=== PATIENT | female | born 1995 | race Caucasian/White ===

== ENCOUNTER 2020-10-16 23:35 | Emergency (ER) | payer MEDICAID, SELFPAY ==
[2020-10-17 00:36] VITALS: BP 131/81; PULSE 87; RESP 16; TEMP 36.8; BMI 34.9
[2020-10-17 01:16] LABS: Glucose Urine UA NEG (NEG); Leukocyte Esterase Urine 3+ (NEG); Nitrite Urine NEG (NEG); UACC Culture Trigger YES; Urine Blood 3+ (NEG); Urine Ketones NEG (NEG); Urine Protein 1+ MG/DL (NEG-TRACE)
[2020-10-17 01:25] LABS: Appearance Urine HAZY; Color Urine PINK
[2020-10-17 01:30] LABS: Bacteria Urine 1+ /LPF; Mucus Urine TRACE /LPF; Squamous Epithelial Cell Urine 1+ /LPF; UACC CULT YES; WBC Clumps Urine NOTED
--- NOTE | 2020-10-17 02:18 | PC.NURSE ---
at bedside for primary eval.
--- NOTE | 2020-10-17 02:25 | ED_ITS ---
HPI - Female Genitourinary General Chief complaint: Urogenital-Female Stated complaint: ABD pain/ pain when urinating Time Seen by Provider: 10/17/20 02:14 Source: patient Mode of arrival: ambulatory History of Present Illness HPI Narrative: 25-year-old female with recent diagnosis of diabetes presents with urinary pain/burning/frequency and difficulty with urination for the past 2 days and now states that she is having some pain in the left back area but denies any associated fever, chills, nausea, vomiting, diarrhea. Related Data Previous Rx's Medication Instructions Recorded ciprofloxacin HCl 500 mg PO Q12H 7 Days #14 tab 10/17/20 Allergies Allergy/AdvReac Type Severity Reaction Status Date / Time No Known Allergies Allergy Verified 10/17/20 00:35 Review of Systems Review of Systems: Pertinent positives and negatives as stated in HPI 10 point review of systems otherwise negative. [facility] Past Medical History Source: nursing notes reviewed Medical History Diabetes Surgical History History of tubal ligation Social History Social History Advance Directives: No Advance Directives Information Provided: No Physical Exam Vital Signs: Vital Signs: Last Vital Signs Temp 98.2 F 10/17/20 00:36 Pulse 87 10/17/20 00:36 Resp 16 10/17/20 00:36 BP 131/81 10/17/20 00:36 Body Mass Index 34.9 VITAL SIGNS: Reviewed. GENERAL: Well developed, well nourished, in no acute distress. HEAD: Normocephalic/atraumatic EYES: PERRLA, EOMI OROPHARYNX: no oral lesions noted, posterior pharynx clear NECK: Supple, no adenopathy LUNGS: Normal breath sounds. No adventitious sounds or accessory muscle use. CARDIOVASCULAR: Regular rate and rhythm without noted murmurs ABDOMEN: Soft, mild tenderness to palpation over suprapubic area without rebound, non-distended with bowel sounds, CVA tenderness on the left SKIN: Inspection of the skin reveals no rashes NEUROLOGIC: Alert and oriented x 4. Course Course Course Narrative: 25-year-old female with history and clinical presentation suggestive of UTI, pyelonephritis, less likely renal colic given absence of nausea/vomiting. On review of all investigations evidence of UTI and taken in conjunction with CVA tenderness patient will be empirically treated for mild pyelonephritis. MDM - Female Genitourinary Lab Data Labs: Lab Results 10/17/20 Range/Units 00:49 Urine Color PINK Urine Appearance HAZY Urine pH 6.0 (5.0-8.0) Ur Specific [place] 1.020 (1.005-1.025) Urine Protein 1+ H (NEG-TRACE) MG/DL Urine Glucose (UA) NEG (NEG) MG/DL Urine Ketones NEG (NEG) MG/DL Urine Blood 3+ H (NEG) Urine Nitrite NEG (NEG) Ur Leukocyte Esterase 3+ H (NEG) Urine RBC 15-29 H (0) /HPF Urine WBC 76-150 H (0-4) /HPF Urine WBC Clumps NOTED Ur Squamous Epith Cells 1+ /LPF Urine Bacteria 1+ /LPF Urine Mucus TRACE /LPF Discharge Plan Discharge Clinical Impression: Pyelonephritis Patient Disposition: Home, Self-Care Instructions: Kidney Infection (ED) Additional Instructions: 1. Reanude todos los medicamentos caseros seg?n lo prescrito. 2. Rigoberto un seguimiento con barron proveedor de atenci?n primaria en los pr?ximos 2 a 3 d?as para gil reevaluaci?n y un tratamiento ambulatorio adicional. 3. recomiende usar Tylenol / ibuprofeno de venta evelyn frankie se indica en el empaque exterior para controlar el dolor o temperaturas superiores a 100.4?C. 4. Aumente la hidrataci?n de los l?quidos, especialmente con agua. Regrese a la john de emergencias por un empeoramiento shabana de los s?ntomas. Prescriptions: New ciprofloxacin HCl 500 mg tablet 500 mg PO Q12H 7 Days Qty: 14 RF: 0 Referrals: [facility] [Primary Care Provider] - 2 days Print Language: Cambodian
[2020-10-17 02:34] VITALS: BP 108/66; PULSE 70; RESP 16
[2020-10-17] MEDS: Ibuprofen 400 MG TABLET PO (02:35)
[2020-10-17] MEDS: Acetaminophen 325 MG TABLET 975 MG PO (02:35)
[2020-10-17] MEDS: levoFLOXacin 500 MG TABLET PO (02:36)
== END 2020-10-17 02:57 | disposition home or self-care (01) ==
PROVIDERS: Emergency Provider Student in an Organized Health Care Education/Training Program
DX: N12 Tubulo-interstitial nephritis, not specified as acute or chronic (principal); R10.9 Unspecified abdominal pain; R30.0 Dysuria; M54.5 Low back pain; Z79.899 Other long term (current) drug therapy
CPT/HCPCS: 81001; 87086; 87088; 87186; 99283; 99284

== ENCOUNTER 2020-12-09 08:00 | Outpatient (RCR) | payer MEDICAID, SELFPAY | END 2020-12-31 09:43 | disposition home or self-care (01) | LOC: HO.PT 08:00 | PROVIDERS: PCP Nurse Practitioner Family; Visit Provider Registered Nurse Community Health | DX: M54.5 Low back pain (principal) | CPT/HCPCS: 97110; 97161; 97530 ==

== ENCOUNTER 2021-05-16 11:23 | Outpatient (REF) | payer MEDICAID, SELFPAY ==
--- NOTE | ~2021-05-16 | US_ITS ---
EXAMINATION: US PELVIS CLINICAL INFORMATION: Excessive and frequent menstruation COMPARISON: None TECHNIQUE: Ultrasound of the pelvis is performed using both transabdominal and transvaginal transducers along with Doppler. Transvaginal imaging is performed due to inadequate visualization transabdominally. FINDINGS: The uterus is anteverted and measures 9.5 x 3.7 x 4.7 cm in dimension. No focal uterine lesion is seen. The endometrium is slightly heterogeneous appearing. Endometrial thickness is normal measuring 1.4 cm. There are hypoechoic lesions in the cervix probably representing complex nabothian cysts. Differential would include small cervical fibroids. The ovaries are normal in size. The right ovary measures 3.6 x 2.2 x 3.2 cm, volume 13 mL. The left ovary measures 3 x 1.9 x 2.9 cm, volume 8.2 mL. There are multiple small peripheral cysts in both ovaries or polycystic appearance. There is no fluid in the pelvis. US/US pelvic and transvaginal IMPRESSION: Slightly heterogeneous appearing but normal thickness endometrium. Small hypoechoic lesions in the cervix questionable for complex nabothian cysts versus small cervical fibroids. Normal size ovaries with multiple small peripheral cysts or polycystic appearance.
== END 2021-05-16 11:24 | disposition home or self-care (01) ==
LOC: HO.US 11:23
PROVIDERS: Visit Provider Advanced Practice Midwife
DX: N92.1 Excessive and frequent menstruation with irregular cycle (principal); N94.6 Dysmenorrhea, unspecified
CPT/HCPCS: 76830; 76856

== ENCOUNTER 2021-06-20 21:00 | Emergency (ER) | payer MEDICAID, SELFPAY ==
[2021-06-20 21:11] VITALS: BP 105/58; PULSE 77; RESP 18; TEMP 36.4; O2SAT 98; BMI 36.6
--- NOTE | 2021-06-20 23:08 | ED_ITS ---
HPI - Ear Problem General Chief complaint: Ear Problems Stated complaint: ear pain Time Seen by Provider: 06/20/21 23:06 Source: patient and family ( mother at bedside) Mode of arrival: ambulatory Limitations: language barrier ( Togolese-speaking) History of Present Illness HPI Narrative: 26-year-old female with a past medical history of prediabetes presenting to the ED with complaints of right-sided ear pain over the past few days with clear/ yellow purulent colored drainage worse today. She denies any fevers, chills, dizziness, headaches, neck pain /stiffness, trouble swallowing or breathing, loss of taste or smell, sore throat, nasal congestion /rhinorrhea, chest pain or shortness of breath, abdominal pain, diarrhea constipation, nausea/ vomiting, rashes, recent travel, recent swimming, recent scuba diving, recent airplane flight, recent illness or trauma or any other symptoms complaints or concerns at this time. MD Complaint: ear pain and ear discharge Location: right ear Duration: constant Severity: mild Relieving factors: nothing Exacerbating factors: palpation Discharge from ear: yes - purulent Treatment prior to arrival: none Related Data Previous Rx's Medication Instructions Recorded ciprofloxacin HCl 500 mg tablet 500 mg PO Q12H 7 Days #14 tab 10/17/20 amoxicillin 875 mg-potassium 1 tab PO BID 7 Days #14 tab 06/20/21 clavulanate 125 mg tablet ciprofloxacin HCl 0.2 % ear drops 5 drp OTIC (EARS) Q12H 7 Days ea 06/20/21 in a dropperette Allergies Allergy/AdvReac Type Severity Reaction Status Date / Time No Known Allergies Allergy Verified 10/17/20 00:35 Review of Systems Review of Systems: Constitutional : No Weight loss, No Fever, No Chills, No Night Sweats, No Fatigue, No Malaise ENT/Mouth : + right ear pain/drainage, No Hearing loss, No Nasal Congestion, No Sinus Pain, No Hoarseness, No sore throat, No Rhinorrhea, No Swallowing Difficulty Eyes: No Eye Pain, No Swelling, No Redness, No Foreign Body, No Discharge, No Vision Changes Cardiovascular : No Chest Pain, No SOB, No Dyspnea on Exertion, No Orthopnea, No Edema, No Palpitations Respiratory : No Cough, No Sputum, No Wheezing, No Smoke Exposure, No Dyspnea Gastrointestinal : No Nausea, No Vomiting, No Diarrhea, No Constipation, No abdominal Pain, No Hematochezia, No Melena Genitourinary : no irregular bleeding, No Dysuria, No Urinary Frequency, No Hematuria, No Urinary Incontinence, No Urgency, No Flank Pain, No Urinary Flow Changes, No Hesitancy Musculoskeletal : No joint pain, No Myalgias, No Joint Swelling Skin : No Skin Lesions, No rash Neuro : No Weakness, No Numbness, No Paresthesias, No Loss of Consciousness, No Dizziness, No Headache Psych : No Anxiety/Panic, No Depression, No SI/HI/AH/VH, No Social Issues, Heme/Lymph: No Bruising, No Bleeding,No Lymphadenopathy Endocrine : No Polyuria, No Polydipsia, No Temperature Intolerance Yes all other systems are reviewed and are negative [facility] Past Medical History Attestation statement: The following information was validated with the patient. Medical History Diabetes Surgical History History of tubal ligation Social History Social History Advance Directives: No Advance Directives Information Provided: Yes Patient : No Physical Exam Vital Signs: Vital Signs: Last Vital Signs Temp 97.6 F 06/20/21 21:11 Pulse 77 06/20/21 21:11 Resp 18 06/20/21 21:11 BP 105/58 L 06/20/21 21:11 Pulse Ox 98 06/20/21 21:11 BMI result Body Mass Index 36.6 vital signs have been reviewed as normal and appeared to be correct. Blood pressure normal. Heart rate normal. Respiration rate normal. Temperature normal. Oxygen saturation normal. Appearance: Alert. Oriented X3. No acute distress. Head: Normal external exam. Normocephalic. Atraumatic. Eyes: PERRLA. EOMI. Conjunctiva and sclera normal. Eyelids normal. ENT: Left external ear canal within normal limits no pain. Right external ear canal now when palpated patient has tenderness to palpation on the pinna and a manipulation of the tragus and she has mild purulent clear/yellow drainage from the right ear. Tympanic membranes mildly erythematous. Left tympanic membrane is within normal limits. No foreign body noted to bilateral ears. No septal hematoma noted. No hemotympanum noted. Pharynx normal. Uvula midline. Moist mucous membranes. No lesions/ulcerations or masses noted on the tongue. Normal voice. No trismus noted. No drooling noted. No muffled voice noted. Neck: Normal inspection. Neck supple. FROM. No adenopathy. Thyroid Normal. No tracheal deviation noted. No crepitus is noted. No meningeal signs. No neck mass noted. No signs of trauma noted. CVS: Normal heart rate and rhythm. Heart sound normal. Pulses normal throughout. No murmurs/rales/gallops. Respiratory: No respiratory distress. Painless inspiration. Breath sounds normal. No wheezes/rales/rhonchi noted. Chest nontender. No crepitus is noted. No signs of trauma noted. No accessory muscle usage noted or decreased air movement noted. No signs of trauma. Abdomen: Soft and nontender. Bowel sounds normal in all 4 quadrants. No distention noted. No organomegaly noted. No visible injury noted. Back: No CVA tenderness. Full range of motion noted. Nontender. No signs of trauma. Patient neuro intact bilaterally and distally on all 4 extremities. Patient's reflexes intact bilaterally and distally on all 4 extremities. No rashes/lesion/induration/fluctuance or signs of infection noted. Skin: Skin warm and dry. Normal skin color. Normal skin turgor. No rashes/lesions/lacerations noted. Extremities: No lower extremity edema. No calf tenderness is noted. Extremities exhibit normal range of motion and nontender. Neuro: Oriented X 3. No motor deficit. No sensory deficit. Reflexes normal. Normal steady gait. No focal neuro deficits noted. CN's II-XII intact bilaterally? Vascular: + radial pulses/+ 2 distal pedal pulses/+2 dorsalis pedis b/l. Normal cap refill. No cyanosis noted to upper extremity nails and lower extremity toes nails. Course Course Course Narrative: 26-year-old female with a past medical history of prediabetes presenting to the ED with complaints of right-sided ear pain over the past few days with clear/ yellow purulent colored drainage worse today. She denies any fevers, chills, dizziness, headaches, neck pain /stiffness, trouble swallowing or breathing, loss of taste or smell, sore throat, nasal congestion /rhinorrhea, chest pain or shortness of breath, abdominal pain, diarrhea constipation, nausea/ vomiting, rashes, recent travel, recent swimming, recent scuba diving, recent airplane flight, recent illness or trauma or any other symptoms complaints or concerns at this time. Patient right-sided otitis externa starting right otitis media. Not consistent mastoiditis. Will DC home antibiotics and instructions return if any new or worsening symptoms and to follow up with primary care provider. Patient and mother at bedside understand agree this plan. [facility] - Ear Medical Records Attestation: I reviewed the patient's medical records. Discharge Plan Discharge Clinical Impression: Otitis externa, Otitis media Patient Disposition: Home, Self-Care Instructions: Otitis Externa (DC), How to Use Ear Drops (ED), Ear Infection ( ED) Prescriptions: New amoxicillin-pot clavulanate 875-125 mg tablet 1 tab PO BID 7 Days Qty: 14 0RF ciprofloxacin HCl 0.2 % dropperette 5 drp otic (ears) Q12H 7 Days 0RF No Action ciprofloxacin HCl 500 mg tablet 500 mg PO Q12H 7 Days Qty: 14 0RF Referrals: [facility] [Primary Care Provider] - 2 days Stand Alone Forms: Work/School Release Print Language: Togolese
== END 2021-06-20 23:27 | disposition home or self-care (01) ==
PROVIDERS: Emergency Provider Internal Medicine
DX: H92.01 Otalgia, right ear (principal); H66.91 Otitis media, unspecified, right ear; H60.91 Unspecified otitis externa, right ear; E11.9 Type 2 diabetes mellitus without complications
CPT/HCPCS: 99283

== ENCOUNTER 2021-06-28 13:17 | Outpatient (REF) | payer MEDICAID, SELFPAY ==
[2021-06-28 15:42] LABS: HCG Quantitative < 2 mIU/mL; TSH reflex Free T4 0.73 uIU/mL (0.32-4.0)
[2021-06-29 09:00] LABS: CT PCR NOT DETECTED (Not Detect.); NG PCR NOT DETECTED (Not Detect.)
[2021-06-30 05:46] LABS: DHEA Sulfate 274 mcg/dL (14-349)
[2021-06-30 08:26] LABS: Follicle Stimulating Hormone 6.3 mIU/mL; Lutenizing Hormone 27.2 mIU/mL; Prolactin 8.6 ng/mL
[2021-07-04 15:57] LABS: Testosterone, Free 5.5 pg/mL (0.1-6.4); Testosterone, Total 34 ng/dL (2-45)
== END 2021-06-28 13:18 | disposition home or self-care (01) ==
LOC: HO.LAB 13:17
PROVIDERS: Visit Provider Obstetrics & Gynecology
DX: Z01.419 Encounter for gynecological examination (general) (routine) without abnormal findings (principal); N93.9 Abnormal uterine and vaginal bleeding, unspecified
CPT/HCPCS: 36415; 82627; 83001; 83002; 83498; 84146; 84402; 84403; 84443; 84702; 87491; 87591; 88142; 99202

== ENCOUNTER 2021-07-15 08:03 | Day surgery (SDC) | payer MEDICAID, SELFPAY ==
[2021-07-08 14:35] VITALS: BMI 35.1
--- NOTE | 2021-07-14 08:36 | P.CONAN_ITS ---
Documented by User: Uma Barrera NP 07/14/21 08:36 HPI - Anesthesia Eval Consult details Narrative: 26yo F for D&C Hysteroscopy,poss polypectomy/myomectomy PMFSH Active Problems Active Problems: All Active Problems (Updated 06/28/21 @ 13:48 by Da Santamaria MD) Abnormal uterine bleeding (AUB) (Acute) Past Medical History Medical History Diabetes Surgical History Surgical History History of tubal ligation Social History Social History Are you a primary primary care nurse to a significant other at home: No Do you presently have visiting nurse or other home services: No Patient Tobacco Use Status: Never used Tobacco Use of substances other than those prescribed or required for medical reasons: No Have you been hit, kicked, punched, or otherwise hurt by someone within the past year? If so, by whom?: No Are you DNR?: No Advance Directives: No Advance Directives Information Provided: No Advance Directives on File: No Recently lost weight without trying: No Eating poorly because of decreased appetite: No Nutrition Risks: No Nutritional Risk Meds Allergies Allergy/AdvReac Type Severity Reaction Status Date / Time No Known Allergies Allergy Verified 07/08/21 14:12 Home Medications Medication Instructions Recorded Confirmed Last Taken Type metformin 500 mg tablet,extended 500 mg PO BID 06/28/21 07/08/21 07/14/21 History release 24 hr Exam Exam Date and Time: July 14, 2021 0836 Height,Weight and Vital Signs: Height 5 ft 5 in Weight 95.708 kg Assessment and Plan Assessment Anesthesia Assessment: Chart Reviewed Documented by User: Susan Keane MD 07/15/21 08:35 [facility] Past Medical History Medical History Diabetes Family History Family history of problems with anesthesia: No Surgical History Surgical History History of tubal ligation History of Problems with Anesthesia: No Social History Social History Are you a primary primary care nurse to a significant other at home: No Do you presently have visiting nurse or other home services: No Patient Tobacco Use Status: Never used Tobacco Use of substances other than those prescribed or required for medical reasons: No Have you been hit, kicked, punched, or otherwise hurt by someone within the past year? If so, by whom?: No Are you DNR?: No Advance Directives: No Advance Directives Information Provided: No Advance Directives on File: No Recently lost weight without trying: No Eating poorly because of decreased appetite: No Nutrition Risks: No Nutritional Risk Meds Allergies Allergy/AdvReac Type Severity Reaction Status Date / Time No Known Allergies Allergy Verified 07/08/21 14:12 Home Medications Medication Instructions Recorded Confirmed Last Taken Type metformin 500 mg tablet,extended 500 mg PO BID 06/28/21 07/08/21 07/14/21 History release 24 hr Exam Airway Mallampati Class: II (Braces) TM Dist: >3cm Neck ROM: Full Heart: rrr Lungs: cta Assessment and Plan Assessment Anesthesia Assessment: Anesthesia Plan Discussed and Chart Reviewed Final Anesthetic Review Family History of Problems with Anesthesia: No History of Problems with Anesthesia: No NPO: Yes ASA Class: II Final Preanesthetic Review: No Changes in Pt Med Stat, Meds/Allgs Chart Reviewed and Consent Obtained/Reviewed Patient Risk: Intermediate Procedure Risk: Intermediate Anesthetic Plan Anesthetic Plan: GA Disposition: Standard PACU
[2021-07-15] VITALS (7 sets, daily range): BP systolic 99–116; BP diastolic 58–79; PULSE 67–86; RESP 14–18; TEMP 36.2–36.8; O2SAT 94–99
[2021-07-15 08:20] LABS: Glucose, Whole Blood 98 mg/dL (60-115)
[2021-07-15 08:29] LABS: UPreg QC Valid YES; Urine Pregnancy NEGATIVE (NEGATIVE)
--- NOTE | 2021-07-15 08:33 | MHC.SHP ---
Pre-Procedural Eval Section A Date of Service: 07/15/21 The patient is an INPATIENT: No Changes since office visit: No Cold of Flu in the past 2 weeks, No New Medical Problems, No Changes in Medication and No Patient answered all questions The History & Physical has been completed within 30 days and I have reviewed it.: Yes Section B Chief Complaint: Abnormal uterine and vaginal bleeding, Allergies: Allergies Allergy/AdvReac Type Severity Reaction Status Date / Time No Known Allergies Allergy Verified 07/08/21 14:12 Plan Diagnosis/Plan: Unchanged I have reviewed the history and physical and performed a pertinent physical examination on my patient. No changes have occurred unless specified.
[2021-07-15] MEDS: Lactated Ringers 1,000 ML 100 ML IVCONT (08:41)
--- NOTE | 2021-07-15 09:49 | PM.OP ---
Brief Operative Note Date of Service: 07/15/21 Pre-op diagnosis: Abnormal uterine bleeding Post-op diagnosis: same (Normal endometrial cavity) Procedure: Hysteroscopy D&C Surgeon: Da Santamaria MD Anesthesia: MAC Was an Visitor Use Assistant used for this Procedure?: No Estimated blood loss (mL): 0 Pathology: other (Endometrial Scrapping. ) Condition: stable Disposition: PACU
--- NOTE | 2021-07-15 09:49 | W.PM.OPN ---
Operative Note Operative Note Date of Service: 07/15/21 Narrative: Preop Diagnosis: Abnormal uterine bleeding Operation: Diagnostic Hysteroscopy, Dilataion & Curettage Post Op Diagnosis: Normal endometrial cavity QBL: Minimal Anesthesia: MAC Surgeon: Da Santamaria MD Highway Maintenance Technician: None Complication: None Pathology: Endometrial Scrapings Procedure: The patient was put in the dorsal lithotomy position, scrubbed, and draped in the usual manner. A sterile speculum was inserted in the patient's vagina. The anterior lip of the cervix was grasped with a single tooth tenaculum. The cervix was dilated up to 5 mm, then the diagnostic scope was inserted in the patient's uterus. Inspection revealed Normal endometrial cavity. Sharp curetting was carried, with moderate amount of tissues retrieved . At the end of the procedure, all instruments were taken out of the patient uterine and vaginal cavity. The single tooth tenaculum was removed and homeostasis was assured using pressure,. The patient tolerated the procedure well and was transferred to the PACU in a stable condition.
[2021-07-15] MEDS: oxyCODONE HCl Immed Release 5 MG TABLET PO (10:12)
== END 2021-07-15 11:06 | disposition home or self-care (01) ==
PROVIDERS: Visit Provider Obstetrics & Gynecology
PROC: 0UDB8ZZ Extraction of Endometrium, Via Natural or Artificial Opening Endoscopic (ICD-10-PCS; CPT 58558; principal; 2021-07-15 10:00)
DX: N93.9 Abnormal uterine and vaginal bleeding, unspecified (principal); N94.6 Dysmenorrhea, unspecified; E11.9 Type 2 diabetes mellitus without complications; Z79.84 Long term (current) use of oral hypoglycemic drugs; Z98.51 Tubal ligation status
CPT/HCPCS: 58558; 81025; 82947; 88305; J1100; J2250; J2405; J3010

== ENCOUNTER → 2021-08-09 13:47 | Outpatient (BNVA) | payer MEDICAID, SELFPAY | PROVIDERS: Visit Provider Obstetrics & Gynecology | DX: E28.2 Polycystic ovarian syndrome (principal) ==